=== PATIENT | female | born 1990 | race Caucasian/White ===

== ENCOUNTER 2017-07-26 15:44 | Outpatient (CLI) | payer OTHER, SELFPAY ==
[2017-07-26 17:09] LABS: Hematocrit 44.1 % (36.0-47.0); Mean Platelet Volume 7.1 fL (7.4-10.4); White Blood Cell (WBC) Count 9.6 thou/uL (4.8-10.8)
[2017-07-26 17:14] LABS: Bilirubin Negative (Negative); Blood, Urine Negative (Negative); Glucose, Urine (Dipstick) >=1000 mg/dL (Negative); Ketone, Urine 15 mg/dL (Negative); Nitrite Negative (Negative); Protein, Urine (Dipstick) Negative (Neg-Trace); Urobilinogen 0.2 mg/dL (0.2-1.0)
[2017-07-26 17:17] LABS: Bacteria/HPF 3+ HPF (None Seen); Hyaline Casts/LPF 0-3 HYALINE CAST LPF (0-3 Hyaline); RBC/HPF 0-3 HPF (0-3)
[2017-07-26 17:36] LABS: Yeast-All Forms None Seen HPF (None Seen)
== END 2017-07-26 15:45 | disposition home or self-care (01) ==
LOC: LABBT 15:44
PROVIDERS: ATTEND Orthopaedic Surgery
DX: Z01.812 Encounter for preprocedural laboratory examination (principal); S62.101D Fracture of unspecified carpal bone, right wrist, subsequent encounter for fracture with routine healing
CPT/HCPCS: 81001; 84703; 85027

== ENCOUNTER 2018-01-18 14:39 | Outpatient (CLI) | payer OTHER, SELFPAY ==
[2018-01-18 15:45] LABS: Hemoglobin 12.3 g/dL (12.0-16.0); Mean Corpuscular HGB CONC 33.9 g/dL (32.0-36.0); Mean Corpuscular Hemoglobin 27.6 pg (27.0-31.0); Mean Corpuscular Volume 81.4 fl (81.0-99.0); Platelet Count 210 thou/uL (130-400); RBC Distribution Width 12.6 % (11.5-14.5); Red Blood Cell (RBC) Count 4.44 mill/uL (4.20-5.40); White Blood Cell (WBC) Count 5.1 thou/uL (4.8-10.8)
[2018-01-18 15:52] LABS: BHCG - Serum Negative (NEGATIVE); Pregs Control Background? CLEAR/WHITE (CLR/WHITE); Pregs Control Bar Appear? YES (CONTROL BAR)
[2018-01-18 16:09] LABS: Anion Gap 12 mmol/L (10-20); BUN (Urea Nitrogen) 10 mg/dL (7.0-18.7); Calc. Creatinine Clearance 0 mL/min (70-130); Calcium 9.4 mg/dL (7.8-10.44); Carbon Dioxide 29 mmol/L (22-29); Chloride 97 mmol/L (98-107); Estimated GFR-MDRD Greater than 90; Glucose 319 mg/dL (70-105); Potassium 3.5 mmol/L (3.5-5.1); Sodium 134 mmol/L (136-145)
== END 2018-01-18 14:40 | disposition home or self-care (01) ==
LOC: LABBT 14:39
PROVIDERS: ATTEND Orthopaedic Surgery
DX: Z01.812 Encounter for preprocedural laboratory examination (principal); S62.602A Fracture of unspecified phalanx of right middle finger, initial encounter for closed fracture; S62.101A Fracture of unspecified carpal bone, right wrist, initial encounter for closed fracture
CPT/HCPCS: 80048; 84703; 85027; 93005; 93010

== ENCOUNTER 2018-01-19 07:11 | Day surgery (SDC) | payer OTHER, SELFPAY ==
[2018-01-18 14:56] VITALS: BMI 31.0
[2018-01-19] MEDS ORDERED: Insulin Regular 300 UNITS/3 ML VIAL ONE ×2 (08:35→11:50)
[2018-01-19] MEDS ORDERED: CEFAZOLIN/Water 2 GM/20 ML SYRINGE ONE (08:35)
[2018-01-19] MEDS ORDERED: Midazolam HCl 2 mg/2 ml Vial ONE ×2 (08:35→09:40)
[2018-01-19] MEDS ORDERED: HYDROmorphone 0.5 MG/0.5 ML SYRINGE ONE ×2 (09:40→11:17)
[2018-01-19] MEDS ORDERED: Metoclopramide HCl 10 MG/2 ML VIAL ONE ×2 (09:40→14:51)
[2018-01-19] MEDS ORDERED: Bupivacaine 0.5% 10 ML VIAL ONE (10:17)
[2018-01-19] MEDS ORDERED: Ketorolac Tromethamine 30 MG/ML VIAL ONE ×2 (11:44→14:51)
[2018-01-19] MEDS ORDERED: Fentanyl 250 MCG/5 ML VIAL ONE (12:14)
--- NOTE | 2018-01-19 12:55 | OP ---
DATE OF PROCEDURE: 01/19/2018 STAFF: Gilberto Contreras M.D. PARTS COUNTER CLERK: Rush Burnett PA-C ANESTHESIA: Vakey. The patient received a LMA with 15 mL of the 0.5% Marcaine plain. ANTIBIOTICS: Two grams of Ancef. IMPLANTS: The patient had 4 distal locking screws, 2.4 distal locking screws and three 2.7 locking s crews that were in and out. The patient had 4 new locking screws as well as 2 compression 2.4 screw s and three 2.7 Synthes screws in and out, 2 screws replaced, same plate was used. TOURNIQUET TIME: 72 minutes at 250 mmHg. ESTIMATED BLOOD LOSS: 50 mL. IMPLANTS: Synthes implants. COMPLICATIONS: None. HISTORY OF PRESENT ILLNESS: Ms. Lino is a 27-year-old female who had her wrist fixed 6 months ago a fter a fall. She had recovered and was doing well. On 01/12/2018 she got kicked by a horse and sust ained a fracture to her right distal radius, got a dorsal cut with intraarticular split with dorsal c omminution and then through the patient's screws. The patient had a P2 fracture of her long finger. I discussed with patient the risks and benefits a ORIF of her long finger fracture versus closed red uction of the long finger fracture as well as revision ORIF of her distal radius fracture with hardwa re removal. The patient understood the risks and benefits of pain, scar, bleeding, infection to debi l structures, decreased range motion or strength, continued pain despite surgical intervention, damag e to vital structures, need for further surgery, failure of procedure, loss of life or limb. The pat ient understood the risks and benefits and elected to proceed. PROCEDURE IN DETAIL: Timeout was performed designating the patient's right upper extremity as the op erative site, based on sites, consents, marking. After completion of timeout, the patient's right ex tremity was prepped and draped in sterile fashion. Tourniquet was brought up and left up for a total of 72 minutes. We went through the previous midline incision, came down the FCR, retracted, came th rough the fascial plane, kind of came down onto where it was scarred in the pronator quadratus. We s plit the scar plane to come down on top of the rotator cuff, pulled the FPL out of the way. I expose d the patient's distal radius. I then removed 2 and 3 screws of the 2.7s from the plate. I left [address] to keep the plate kind of in the position it was in. I removed the distal locking screws, 3 of the 4 were significantly bent. We then looked under fluoroscopic guidance and manipulated the bon e both intra-articular split as well as the distal fragment to help reduce it back into place, leavin g the plate in its position. I then pinned with K-wires and placed two 2.4 nonlocking screws into th e distal fragment to compress and help with lifting the posterior aspect of the bone. I then put 2 l ocking screws into the styloid and a locking screw into right in the DRJ. I then put in 2 more 2.7 s crews that I drilled bicortical in place to help compress the plate down to help with changing the do rsal inclination, I like I got it to almost near neutral, had a good, intra-articular split was maint ained. The comminution was spanned. We then went back and removed those 2 nonlocking screws in the interior of the 4-hole plate distally and placed two more 2.4 locking screws to lock it into place. Washed, tightened all the screws, closed the portion of the pronator quadratus, then closed subcu wit h 2-0 Vicryl and 3-0 nylon. I then went to the patient's finger, looked under fluoroscopic guidance took a 4.5 K-wire went from the radial aspect down the shaft reducing into place and pinned on both s ides medially and laterally. I liked the position of my pins, the transection of the fracture. The fracture was reduced on AP, lateral and oblique planes, I liked the overall position. We then cut th e pins, bent them up, let the tourniquet down after 72 minutes. I placed 10 mL of local into the inc ision from the distal radius and placed 5 for a digital block of her finger, placed her in a soft tis karly dressing. The patient will be discharged home. The patient will follow up in about 10-14 days. She has pain m edication at home. The patient's outlook is guarded.
--- NOTE | 2018-01-19 14:02 | RAD ---
RIGHT WRIST 3 VIEWS: HISTORY: A 27-year-old female status post ORIF right wrist. COMPARISON: 07/28/17 study. FINDINGS: Metal plate and screws stabilize the distal radius. There appears to be a new vertically oriented fr acture through the distal radial metapophysis extending into the radiocarpal joint which appears to b e new when compared to the 07/28/17 study. There is also some deformity of the distal ulna raising co ncern about the possibility of an additional ulnar fracture. No intervening radiographs are availabl e between today's study and the older 07/28/17 study. IMPRESSION: Metal plate and screws stabilize the distal radius on these 3 portable fluoroscopic spot images. Keny ewhat oblique vertically oriented fracture through the distal radius extending into the radiocarpal j oint. Minimal deformity of the distal ulna, evidence for distal ulnar fracture. POS: [facility]
--- NOTE | 2018-01-19 14:12 | RAD ---
RIGHT MIDDLE FINGER 3 VIEWS: HISTORY: A 27-year-old female with a history of right finger pinning. FINDINGS: There are 2 Kirshner wires stabilizing a fracture of the middle phalanx of the middle finger. IMPRESSION: Placement of 2 Kirshner wires stabilizing middle phalanx fracture of the middle finger. No prior rad iographs. POS: [facility]
[2018-01-19] MEDS ORDERED: Bupivacaine HCl 0.5%/Epinephrine 1:200,000/PF 30 ml Vial ONE (14:35)
[2018-01-19] MEDS ORDERED: Ondansetron HCl/PF 4 MG/2 ML Vial ONE (14:51)
[2018-01-19] MEDS ORDERED: Lidocaine 1% PF 5 ML VIAL ONE (14:51)
[2018-01-19] MEDS ORDERED: Propofol 200 MG/20 ML VIAL ONE (14:51)
[2018-01-19] MEDS ORDERED: PHENYLEPHRINE-NS 100 MCG/ML 10 ML SYRINGE ONE (14:51)
[2018-01-19] MEDS ORDERED: diphenhydrAMINE 50 MG/ML VIAL ONE (14:51)
[2018-01-19] MEDS ORDERED: ePHEDrine/0.9% NaCl/PF SYRINGE 50 mg/10 ml ONE (14:51)
== END 2018-01-19 14:05 | disposition home or self-care (01) ==
LOC: SDC 07:11
PROVIDERS: ATTEND Orthopaedic Surgery
PROC: 0PST04Z Reposition Right Finger Phalanx with Internal Fixation Device, Open Approach (ICD-10-PCS; principal; 2018-01-19)
PROC: 0PSH04Z Reposition Right Radius with Internal Fixation Device, Open Approach (ICD-10-PCS; principal; 2018-01-19)
DX: S62.622A Displaced fracture of middle phalanx of right middle finger, initial encounter for closed fracture (principal); S52.501A Unspecified fracture of the lower end of right radius, initial encounter for closed fracture; F98.8 Other specified behavioral and emotional disorders with onset usually occurring in childhood and adolescence; F95.2 Tourette's disorder; E10.9 Type 1 diabetes mellitus without complications; G50.0 Trigeminal neuralgia; Z88.8 Allergy status to other drugs, medicaments and biological substances; Z79.899 Other long term (current) drug therapy; Z98.890 Other specified postprocedural states; W55.12XA Struck by horse, initial encounter
CPT/HCPCS: 36416; 76001; 96374; C1713; J0131; J0670; J1170; J1200; J1815; J1885; J2001; J2250; J2405; J2704; J2765; J3010; J3490